=== PATIENT | female | born 1955 | race Caucasian/White ===

== ENCOUNTER 2017-06-08 14:22 | Emergency (ER) | payer OTHER ==
[~2017-06-08] VITALS: Ht 160 cm; Wt 56.7 kg
[~2017-06-08 14:22] MED LIST: ACULAR 3ML 3 ML5 ML OPH; ANUSOL-HC25 MG R; CATAFLAM50 MG PO; FLEXERIL5 MG PO; HYDROCODONE BIT1 T11 PO; MEDROL DOSEPAK4 MG PO; MIRALAX POWDER255 G1 PO; NORCO 5-325 TA1 EACH PO; TOBREX0.3% OP
[2017-06-08 15:47] LABS: BASO % 0.4 % (0.0-1.0); EOS # 0.1 10*3/uL (0.0-0.4); EOS % 0.8 % (1.0-4.0); HEMATOCRIT 42.9 % (37.0-47.0); HEMOGLOBIN 14.7 g/dl (12.0-16.0); LYMPH # 2.8 10*3/uL (1.3-4.4); LYMPH % 38.3 % (27.0-41.0); MEAN CELL VOLUME 95.1 fl (81.0-99.0); MEAN CORPUSCULAR HGB 32.6 pg (27.0-31.0); MEAN CORPUSCULAR HGB CONC 34.3 g/dl (33.0-37.0); MEAN PLATELET VOLUME 10.5 fl (9.6-12.3); MONO # 0.3 10*3/uL (0.1-1.0); MONO % 4.6 % (3.0-9.0); NEUT # 4.1 10*3/uL (2.3-7.9); NEUT % 55.6 % (47.0-73.0); PLATELET COUNT AUTOMATED 283 10*3/uL (130-400); RED BLOOD COUNT 4.51 10*6/uL (4.10-5.10); RED CELL DISTRI WIDTH 12.9 % (0-14.5); WHITE BLOOD COUNT 7.3 10*3/uL (4.8-10.8)
[2017-06-08 16:10] LABS: ALBUMIN 4.2 gm/dl (3.1-4.5); ALKALINE PHOSPHATASE 68 U/L (45-117); BILIRUBIN, TOTAL 0.4 mg/dl (0.2-1.0); BUN 10 mg/dl (7-24); CARBON DIOXIDE 27 mmol/L (21-32); CHLORIDE 104 mmol/L (98-107); CPK 47 U/L (26-192); EST GLOM FILT AFRICAN AMERICAN > 60 ml/min; GLUCOSE 71 mg/dL (65-99); LDH 162 U/L (84-246); MAGNESIUM 2.2 mg/dL (1.5-2.1); POTASSIUM 4.1 mmol/L (3.5-5.1); SGOT/AST 11 IU/L (3-35); SGPT/ALT 16 U/L (12-78); SODIUM 138 mmol/L (136-145); TOTAL PROTEIN 7.5 gm/dL (6.4-8.2)
[2017-06-08 16:12] LABS: CKMB < 0.5 ng/ml (0.5-3.6); TROPONIN I < 0.015 ng/ml (<0.045)
[2017-06-08] MEDS ORDERED: MEDROL DOSEPAK4 MG PO (16:32)
[2017-06-08] MEDS ORDERED: LEVAQUIN750 M1 PO (16:32)
== END 2017-06-08 16:52 | disposition home or self-care (01) ==
LOC: ED 14:22
PROVIDERS: Physician Assistant
DX: R09.1 Pleurisy (principal); F17.200 Nicotine dependence, unspecified, uncomplicated; Z88.6 Allergy status to analgesic agent

== ENCOUNTER → 2017-08-08 | Outpatient (CLI) | payer OTHER ==
[~2017-08-08] MED LIST changes: +LEVAQUIN750 M1 PO
== END | disposition home or self-care (01) ==
LOC: US 10:54
DX: R22.9 Localized swelling, mass and lump, unspecified (principal)

== ENCOUNTER → 2017-11-19 | Outpatient (CLI) | payer OTHER | END | disposition home or self-care (01) | LOC: RAD 15:21 | DX: M54.5 Low back pain (principal); R05 Cough; R06.02 Shortness of breath; R07.89 Other chest pain ==

== ENCOUNTER 2019-02-02 18:25 | Emergency (ER) | payer OTHER ==
[~2019-02-02] VITALS: Ht 157.4 cm; Wt 54.4 kg
[2019-02-02] MEDS ORDERED: AUGMENTIN 875875 MG PO (21:09)
[2019-02-02] MEDS ORDERED: ALLEGRA-D 24 H1 EACH PO (21:10)
[2019-02-02] MEDS ORDERED: FLONASE ALLERG9.9 ML NAS (21:10)
== END 2019-02-02 21:19 | disposition home or self-care (01) ==
LOC: ED 18:25
DX: J32.0 Chronic maxillary sinusitis (principal); M54.6 Pain in thoracic spine; G89.29 Other chronic pain; J34.3 Hypertrophy of nasal turbinates; Z88.6 Allergy status to analgesic agent

== ENCOUNTER → 2019-06-13 | Outpatient (CLI) | payer OTHER ==
[~2019-06-13] MED LIST changes: +ALLEGRA-D 24 H1 EACH PO; +AUGMENTIN 875875 MG PO; +CYCLOBENZAPRINE5 M3 PO; +FLONASE ALLERG9.9 ML NAS; +Motrin,Rufen800 MG PO; +ZYRTEC-D TABLE1 EACH PO
[2019-06-13 09:08] LABS: BASO % 0.5 % (0.0-1.0); EOS # 0.1 10*3/uL (0.0-0.4); EOS % 1.6 % (1.0-4.0); HEMATOCRIT 40.7 % (37.0-47.0); LYMPH % 27.2 % (27.0-41.0); MEAN CELL VOLUME 95.8 fl (81.0-99.0); MEAN CORPUSCULAR HGB 32.9 pg (27.0-31.0); MEAN CORPUSCULAR HGB CONC 34.4 g/dl (33.0-37.0); MEAN PLATELET VOLUME 10.1 fl (9.6-12.3); MONO # 0.4 10*3/uL (0.1-1.0); MONO % 4.7 % (3.0-9.0); NEUT # 4.8 10*3/uL (2.3-7.9); NEUT % 65.6 % (47.0-73.0); PLATELET COUNT AUTOMATED 296 10*3/uL (130-400); RED BLOOD COUNT 4.25 10*6/uL (4.10-5.10); RED CELL DISTRI WIDTH 13.3 % (0-14.5); WHITE BLOOD COUNT 7.4 10*3/uL (4.8-10.8)
[2019-06-13 09:33] LABS: ALBUMIN 3.8 gm/dl (3.1-4.5); ALKALINE PHOSPHATASE 56 U/L (45-117); BUN 11 mg/dl (7-24); CHLORIDE 108 mmol/L (98-107); CHOLESTEROL 181 mg/dL (<200); CREATININE 0.56 mg/dL (0.55-1.02); FREE T4 1.13 ng/dl (0.76-1.46); HDL CHOLESTEROL 72 mg/dl (40-60); LDL CHOLESTEROL 93 mg/dL (9-159); POTASSIUM 4.1 mmol/L (3.5-5.1); SGOT/AST 6 IU/L (3-35); SGPT/ALT 16 U/L (12-78); SODIUM 141 mmol/L (136-145); TOTAL PROTEIN 6.8 gm/dL (6.4-8.2); TRIGLYCERIDES 80 mg/dl (<150); VLDL CHOLESTEROL 16 mg/dL (6-40)
[2019-06-13 10:38] LABS: VITAMIN D, 25-HYDROXY 27.3 ng/mL (30-100)
== END | disposition home or self-care (01) ==
LOC: LAB 08:45
PROVIDERS: Internal Medicine
DX: E03.9 Hypothyroidism, unspecified (principal); E55.9 Vitamin D deficiency, unspecified; R73.9 Hyperglycemia, unspecified; R53.81 Other malaise

== ENCOUNTER 2020-03-27 20:28 | Emergency (ER) | payer MEDICARE, MEDICAID | END 2020-03-27 20:40 | disposition left against medical advice (07) | LOC: ED 20:28 | DX: R91.8 Other nonspecific abnormal finding of lung field (principal); Z53.21 Procedure and treatment not carried out due to patient leaving prior to being seen by health care provider ==

== ENCOUNTER → 2020-12-06 | Outpatient (CLI) | payer MEDICARE, MEDICAID | END | disposition home or self-care (01) | LOC: RAD 14:05 | PROVIDERS: ATTEND Nurse Practitioner Family | DX: M19.042 Primary osteoarthritis, left hand (principal); M79.642 Pain in left hand; M79.645 Pain in left finger(s) ==

== ENCOUNTER → 2020-12-17 | Outpatient (CLI) | payer MEDICARE, MEDICAID | END | disposition home or self-care (01) | LOC: COVID19 13:11 | PROVIDERS: ATTEND Internal Medicine | DX: Z20.822 Contact with and (suspected) exposure to COVID-19 (principal) ==

== ENCOUNTER → 2022-03-11 | Outpatient (CLI) | payer MEDICARE ==
[2022-03-11 10:37] LABS: CREATININE 0.62 mg/dL (0.55-1.02)
== END | disposition home or self-care (01) ==
LOC: LAB 10:02 → CT 11:00
PROVIDERS: ATTEND Surgery
DX: J32.3 Chronic sphenoidal sinusitis (principal); D17.9 Benign lipomatous neoplasm, unspecified; L98.9 Disorder of the skin and subcutaneous tissue, unspecified

== ENCOUNTER 2022-10-26 11:10 | Emergency (ER) | payer MEDICARE ==
[~2022-10-26] VITALS: Ht 157.4 cm; Wt 54.4 kg
== END 2022-10-26 12:28 | disposition home or self-care (01) ==
LOC: ED 11:10
DX: S05.01XA Injury of conjunctiva and corneal abrasion without foreign body, right eye, initial encounter (principal); H11.31 Conjunctival hemorrhage, right eye; Z90.710 Acquired absence of both cervix and uterus; Z88.5 Allergy status to narcotic agent; F10.90 Alcohol use, unspecified, uncomplicated; W22.8XXA Striking against or struck by other objects, initial encounter; Y93.89 Activity, other specified; Y92.89 Other specified places as the place of occurrence of the external cause; Y99.8 Other external cause status

== ENCOUNTER 2022-11-21 14:10 | Emergency (ER) | payer MEDICARE | END 2022-11-21 19:35 | disposition left against medical advice (07) | LOC: ED 14:10 | DX: H57.89 Other specified disorders of eye and adnexa (principal); Z53.21 Procedure and treatment not carried out due to patient leaving prior to being seen by health care provider ==

== ENCOUNTER 2022-11-23 13:03 | Emergency (ER) | payer MEDICARE ==
[~2022-11-23] VITALS: Wt 56.7 kg
[2022-11-23 14:02] LABS: BASO % 0.4 % (0.0-1.0); EOS % 0.3 % (1.0-4.0); HEMATOCRIT 42.7 % (37.0-47.0); LYMPH # 1.5 10*3/uL (1.3-4.4); LYMPH % 19.8 % (27.0-41.0); MEAN CELL VOLUME 95.1 fl (81.0-99.0); MEAN CORPUSCULAR HGB 32.7 pg (27.0-31.0); MEAN CORPUSCULAR HGB CONC 34.4 g/dl (33.0-37.0); MEAN PLATELET VOLUME 9.9 fl (9.6-12.3); MONO # 0.3 10*3/uL (0.1-1.0); NEUT # 5.5 10*3/uL (2.3-7.9); NEUT % 75.2 % (47.0-73.0); PLATELET COUNT AUTOMATED 352 10*3/uL (130-400); RED BLOOD COUNT 4.49 10*6/uL (4.10-5.10); RED CELL DISTRI WIDTH 12.6 % (0-14.5); WHITE BLOOD COUNT 7.3 10*3/uL (4.8-10.8)
[2022-11-23 14:08] LABS: ALKALINE PHOSPHATASE 55 U/L (46-116); BUN 12 mg/dl (9-23); CHLORIDE 100 mmol/L (98-107); POTASSIUM 4.6 mmol/L (3.4-5.1); SGPT/ALT 8 U/L (10-49); TOTAL PROTEIN 7.4 gm/dL (6.0-8.0)
== END 2022-11-23 16:50 | disposition home or self-care (01) ==
LOC: ED 13:03
PROVIDERS: Nurse Practitioner Family
DX: R51.9 Headache, unspecified (principal); Z90.710 Acquired absence of both cervix and uterus

== ENCOUNTER 2023-01-27 12:02 | Emergency (ER) | payer MEDICARE ==
[~2023-01-27] VITALS: Ht 157.4 cm; Wt 54.4 kg
[2023-01-27] MEDS ORDERED: HYDROCODONE-AC1 EAC1 PO (13:44)
[2023-01-27] MEDS ORDERED: Motrin,Rufen800 MG PO (13:44)
== END 2023-01-27 14:15 | disposition home or self-care (01) ==
LOC: ED 12:02
DX: S90.02XA Contusion of left ankle, initial encounter (principal); Z90.710 Acquired absence of both cervix and uterus; Z98.890 Other specified postprocedural states; W17.89XA Other fall from one level to another, initial encounter; Y93.89 Activity, other specified; Y92.89 Other specified places as the place of occurrence of the external cause; Y99.8 Other external cause status

== ENCOUNTER 2023-01-29 13:33 | Emergency (ER) | payer MEDICARE ==
[~2023-01-29] VITALS: Wt 54.4 kg
[~2023-01-29 13:33] MED LIST changes: +HYDROCODONE-AC1 EAC1 PO
== END 2023-01-29 17:25 | disposition left against medical advice (07) ==
LOC: ED 13:33
DX: R20.0 Anesthesia of skin (principal); Z53.21 Procedure and treatment not carried out due to patient leaving prior to being seen by health care provider

== ENCOUNTER → 2023-08-11 | Outpatient (CLI) | payer MEDICARE ==
[2023-08-11 08:36] LABS: BASO % 0.5 % (0.0-1.0); EOS # 0.1 10*3/uL (0.0-0.4); EOS % 1.4 % (1.0-4.0); HEMATOCRIT 39.3 % (37.0-47.0); LYMPH # 2.1 10*3/uL (1.3-4.4); LYMPH % 33.1 % (27.0-41.0); MEAN CELL VOLUME 96.8 fl (81.0-99.0); MEAN CORPUSCULAR HGB 31.5 pg (27.0-31.0); MEAN CORPUSCULAR HGB CONC 32.6 g/dl (33.0-37.0); MEAN PLATELET VOLUME 9.9 fl (9.6-12.3); MONO # 0.3 10*3/uL (0.1-1.0); NEUT # 3.7 10*3/uL (2.3-7.9); NEUT % 59.7 % (47.0-73.0); PLATELET COUNT AUTOMATED 321 10*3/uL (130-400); RED BLOOD COUNT 4.06 10*6/uL (4.10-5.10); RED CELL DISTRI WIDTH 12.7 % (0-14.5); WHITE BLOOD COUNT 6.2 10*3/uL (4.8-10.8)
[2023-08-11 08:37] LABS: BILIRUBIN Negative (Negative); BLOOD Negative (Negative); CLARITY Cloudy (Clear); COLOR Yellow (Yellow); GLUCOSE Negative (Negative); KETONE Negative (Negative); LEUKO ESTERASE Trace (Negative); NITRITE Negative (Negative); SPECIFIC GRAVITY 1.015 (1.001-1.030); UROBILINOGEN 0.2 E.U./dl (0.0-1.0)
[2023-08-11 09:18] LABS: ALKALINE PHOSPHATASE 54 U/L (46-116); BUN 10 mg/dl (9-23); CHLORIDE 109 mmol/L (98-107); CHOLESTEROL 214 mg/dL (<200); FREE T4 1.04 ng/dl (0.89-1.76); LDL CHOLESTEROL 134 mg/dL (9-159); POTASSIUM 4.2 mmol/L (3.4-5.1); SGPT/ALT 8 U/L (10-49); TOTAL PROTEIN 6.3 gm/dL (6.0-8.0); TRIGLYCERIDES 92 mg/dl (<150); VITAMIN D, 25-HYDROXY 30.1 ng/mL (30-100)
[2023-08-11 09:28] LABS: BACTERIA 4+; EPITHELIAL CELLS TNTC
[2023-08-12 12:08] LABS: CCP ANTIBODIES IGG/IGA 16 units (0-19)
== END | disposition home or self-care (01) ==
LOC: LAB 00:52 → MAMMO 00:52
PROVIDERS: ATTEND Internal Medicine
DX: Z12.31 Encounter for screening mammogram for malignant neoplasm of breast (principal); S92.812D Other fracture of left foot, subsequent encounter for fracture with routine healing; R03.0 Elevated blood-pressure reading, without diagnosis of hypertension; Z13.0 Encounter for screening for diseases of the blood and blood-forming organs and certain disorders involving the immune mechanism; Z13.1 Encounter for screening for diabetes mellitus; Z13.21 Encounter for screening for nutritional disorder; Z13.220 Encounter for screening for lipoid disorders; Z13.29 Encounter for screening for other suspected endocrine disorder; Z13.6 Encounter for screening for cardiovascular disorders; Z13.89 Encounter for screening for other disorder; Z13.9 Encounter for screening, unspecified; M79.672 Pain in left foot; X58.XXXD Exposure to other specified factors, subsequent encounter